=== PATIENT | male | born 1965 | race Caucasian/White ===

== ENCOUNTER → 2021-01-30 | Day surgery (SDC) | payer BC, OTHER ==
[~2021-01-30] MED LIST: CLARITIN10 MG PO; FISH OIL 500 M1 EAC2 PO; FLOMAX 0.4 MG0.4 MG PO; FLONASE 0.05% N16 GM; MULTI-VITAMIN1 EACH PO; VITAMIN D3125 MCG PO; VITAMIN E400 UNI1 PO; ZOCOR40 MG PO
== END | disposition home or self-care (01) ==
LOC: OR 06:44
DX: Z12.11 Encounter for screening for malignant neoplasm of colon (principal); E78.00 Pure hypercholesterolemia, unspecified; N40.0 Benign prostatic hyperplasia without lower urinary tract symptoms; K76.0 Fatty (change of) liver, not elsewhere classified; E66.01 Morbid (severe) obesity due to excess calories; Z68.41 Body mass index [BMI] 40.0-44.9, adult; Z79.899 Other long term (current) drug therapy
CPT/HCPCS: J2704; J7030